=== PATIENT | female | born 1985 | race Asian ===

== ENCOUNTER 2019-02-21 09:53 | Outpatient (CLI) | payer OTHER ==
[~2019-02-21] VITALS: Ht 162.6 cm; Wt 75.6 kg
[~2019-02-21 09:53] MED LIST: PNV11TAB PO
[2019-02-21 10:05] VITALS: BP 122/59; PULSE 83; RESP 19; Ht 162.6 cm; Wt 75.6 kg
--- NOTE | 2019-02-21 11:55 | TRIAGE ---
OB Triage Datetime Report Generated by CPN: 02/21/2019 11:55 Datetime: 02/21/2019 10:09 Assessment Type: Triage Maternal Assessment Level of Consciousness: Keenly Alert, Responsive DTR's/Clonus: DTRs 2+; No Clonus Headache: Denies Blurred Vision: No Respiratory Effort: Unlabored; Regular Rhythm; Equal Expansion Breath Sounds, Left: Clear and Equal Breath Sounds, Right: Clear and Equal Nausea/Vomiting: Denies RUQ Epigastric Pain: Denies Lower Extremities Edema: None Degree: None Upper Extremities Edema: None Degree: None Facial Edema: None Fall Risk Assessment History of Falling: (0) No Secondary Diagnosis: (0) No Ambulatory Aid: (0) Bedrest/Nurse Assist IV Therapy: (0) No Gait: (0) Normal/Bedrest/Immobile Mental Status: (0) Oriented to Own Ability Fall Score: 0 Fall Risk Score Definition: No Risk: No action required Datetime: 02/21/2019 10:08 Time of Arrival: 02/21/2019 09:45 EGA: 36.5 Arrived By: Ambulatory Arrived From: Home Chief Complaint: GDM Movement: Present Contractions: Denies/Absent Rupture of Membranes: Denies Vaginal Bleeding: None Vaginal Discharge: Denies Recent Sexual Intercouse: Denies Abdominal Trauma: Not Applicable Patient Complaints: Other Time Provider Notified: 02/21/2019 11:45 Provider Notified: dr sanford Initial Plan: NST AND BPP Datetime: 02/21/2019 10:07 Labor Evaluation Pattern: Normal: <= 5 Contractions in 10 Minutes Resting Tone [place]: Relaxed Heart Rate FHR Baseline Rate: 135 Monitor Mode: External US Variability: Moderate 6-25 bpm Accelerations: 15X15 Decelerations: None Category: Category I
--- NOTE | 2019-02-21 12:09 | PN ---
Triage Information Date/Time 02/21/19 Reason for visit: antepartum test for GDM Weeks of Gestation 36w5d /Para Diabetes: gestational Diabetes management: diet controlled Hypertention: none Objective Vital Signs Date Temp Pulse Resp B/P (MAP) Pulse Ox O2 O2 Flow FiO2 Time Delivery Rate 02/21/19 97.6 83 19 122/59 10:05 (80) Heart Rate: 140's Contractions: None Results/Medications Results 24 hrs Laboratory Tests Test 02/21/19 11:08 Bedside Glucose 77 Imaging Results BPP 8 KIRA 8.3 Disposition: Discharge Assessment/Plan A IUP 36w5d borderline oligohydramnios GDM P RTH for f/u KIRA also antepartum test pt desire to have EFW advise to drink more water ROSANA PHILLIPS MD Feb 21, 2019 12:09
--- NOTE | 2019-02-24 12:29 | HP ---
DATE OF ADMISSION: 02/21/2019 HISTORY OF PRESENT ILLNESS: Ms. Janet Guardado is a 33-year-old 4, para 1, EDC 03/22/2019, intr auterine at 37 weeks and 1 day gestational age, presented to triage today for a nonstress t est/biophysical profile secondary to GDM A1. She denies any contractions, vaginal bleeding, or disch arge. Her care took place at [facility]. PAST MEDICAL HISTORY: GDM A1. MEDICATIONS: vitamins. PAST SURGICAL HISTORY: x1 previous section. OBSTETRICAL HISTORY: x1 previous , x2 missed AB. GYNECOLOGIC HISTORY: 11, regular 3 to 4 days. Denies any sexually transmitted infections. Sexually active with 1 partner. SOCIAL HISTORY: Denies any smoking, drugs or alcohol. FAMILY HISTORY: None. REVIEW OF SYSTEMS: All within normal except history of present illness. PHYSICAL EXAMINATION: HEENT: Within normal. LUNGS: CTA bilateral. CARDIOVASCULAR: S1, S2, regular rhythm. ABDOMEN: Gravid, nontender. Negative CVA bilateral. EXTREMITIES: Negative edema. No calf tenderness. PELVIC: Vaginal exam deferred. ASSESSMENT: heart tracing category 1. [place]: Irregular contractions. ASSESSMENT: Obtain a biophysical profile with nonstress followed by oral hydration. If everything i s within normal, patient may be discharged. Dictated By: HONG KURTZ/ELIECER Conf#: [id number] DID#: [id number]
== END 2019-02-21 12:01 | disposition home or self-care (01) ==
LOC: OBT 09:53 → L-D 09:56 → OBT 12:01
PROVIDERS: ATTEND Obstetrics & Gynecology
DX: O24.419 Gestational diabetes mellitus in pregnancy, unspecified control (principal); Z3A.36 36 weeks gestation of pregnancy
CPT/HCPCS: 76818; 82962; Z7500; G0463

== ENCOUNTER 2019-02-27 09:25 | Outpatient (CLI) | payer OTHER ==
[~2019-02-27] VITALS: Ht 162.6 cm; Wt 75.3 kg
[2019-02-27 09:48] VITALS: BP 96/59; PULSE 98; RESP 19; Ht 162.6 cm; Wt 75.3 kg
== END 2019-02-27 13:30 | disposition home or self-care (01) ==
LOC: OBT 09:25 → L-D 09:26 → OBT 13:30
PROVIDERS: ATTEND Obstetrics & Gynecology
DX: O24.419 Gestational diabetes mellitus in pregnancy, unspecified control (principal); Z3A.37 37 weeks gestation of pregnancy
CPT/HCPCS: 76816; 76818; 82962; Z7500; G0463

== ENCOUNTER 2019-03-08 00:10 | Inpatient (IN) | payer OTHER ==
[~2019-03-08] VITALS: Ht 162.6 cm; Wt 75.5 kg
[2019-03-08 00:46] VITALS: BP 111/58; PULSE 76; RESP 17; Ht 162.6 cm; Wt 75.5 kg
[2019-03-08] MEDS ORDERED: CEFAZOLIN 2 GM/50 ML (PMX) 50 ML IVPB SCH (01:30)
[2019-03-08] MEDS ORDERED: CARBOPROST 250 MCG INJ IM PRN ×2 (01:30→16:00)
[2019-03-08] MEDS ORDERED: OXYTOCIN 30 UNITS/LR 500 ML IV PRN ×2 (01:30→16:00)
[2019-03-08] MEDS ORDERED: METHYLERGONOVINE 0.2 MG INJ IM PRN ×2 (01:30→16:00)
[2019-03-08] MEDS ORDERED: TERBUTALINE 1 MG/ML INJ SC ONE (01:30)
[2019-03-08] MEDS ORDERED: OXYTOCIN 30 UNITS/LR 500 ML IV SCH ×2 (01:30→15:47)
[2019-03-08] MEDS ORDERED: MISOPROSTOL 200 MCG TAB PR PRN ×2 (01:30→16:00)
[2019-03-08] MEDS: LACTATED RINGER'S 1,000 ML IV SCH ×2 (01:39→03:01)
[2019-03-08] MEDS ORDERED: AZITHROMYCIN 500MG/NS (PMX) 250 ML IVPB ONE (07:00)
[2019-03-08] MEDS ORDERED: ONDANSETRON 4 MG INJ IV ONE (07:30)
[2019-03-08] MEDS ORDERED: CITRIC ACID/NA CITRATE 30 ML CUP PO ONE (07:30)
[2019-03-08] MEDS ORDERED: PHENYLephrine (100 MCG/ML) 10ML SYG ONE (07:42)
[2019-03-08] MEDS ORDERED: OXYTOCIN 10 UNIT INJ ONE (07:43)
[2019-03-08] MEDS ORDERED: morphine SULFATE/PF (10 MG/10 ML) INJ ONE (07:43)
[2019-03-08] MEDS ORDERED: KETOROLAC 30 MG INJ ONE (08:09)
[2019-03-08] MEDS ORDERED: DEXAMETHASONE 4 MG/ML 1 ML INJ ONE (08:09)
[2019-03-08] MEDS ORDERED: METOCLOPRAMIDE 10 MG INJ ONE (08:09)
[2019-03-08] MEDS ORDERED: EPHEDrine 25 MG/5 ML SYG ONE (08:22)
[2019-03-08] MEDS ORDERED: NALOXONE (0.4 MG/ML) INJ IV PRN (08:30)
[2019-03-08] MEDS ORDERED: NALBUPHINE HCL (10 MG/1 ML) INJ IV PRN (08:30)
[2019-03-08] MEDS ORDERED: HYDROmorphONE 0.5 MG/0.5 ML SYG IV PRN ×2 (08:30)
[2019-03-08] MEDS ORDERED: KETOROLAC 30 MG INJ IV PRN (08:30)
[2019-03-08] MEDS ORDERED: ACETAMINOPHEN 500 MG TAB PO PRN (08:30)
[2019-03-08] MEDS ORDERED: DIPHENHYDRAMINE 50 MG INJ IV PRN ×2 (08:30)
[2019-03-08] MEDS ORDERED: HYDROmorphONE 1 MG/5 ML IV SYRINGE IV PRN ×2 (08:30)
[2019-03-08] MEDS ORDERED: FENTAnyl 50 MCG/ML VIAL IV PRN ×2 (08:30)
[2019-03-08] MEDS ORDERED: OXYCODONE/ACETAMINOPHEN (5/325) TAB PO PRN (08:30)
[2019-03-08] MEDS ORDERED: morphine 2 MG INJ IV PRN ×2 (08:30)
[2019-03-08] MEDS ORDERED: ONDANSETRON 4 MG INJ IV PRN ×2 (08:30)
[2019-03-08] MEDS ORDERED: EPHEDrine 25 MG/5 ML SYG IV PRN (08:30)
[2019-03-08] MEDS ORDERED: HYDROCODONE/APAP (5/325) TAB PO PRN (08:30)
[2019-03-08] MEDS ORDERED: MEPERIDINE 25 MG INJ IV PRN (08:30)
[2019-03-08] MEDS ORDERED: LACTATED RINGER'S 1,000 ML IV ONE (10:30)
[2019-03-08 16:00] VITALS: BP 95/53; PULSE 69; RESP 18
[2019-03-08] MEDS ORDERED: MAGNESIUM HYDROXIDE 30ML CUP PO PRN (16:00)
[2019-03-08] MEDS ORDERED: METHYLERGONOVINE 0.2 MG TAB PO PRN (16:00)
[2019-03-08] MEDS ORDERED: LANOLIN HPA 1 PKT TOP PRN (16:00)
[2019-03-08] MEDS: DEXTROSE 5%-LR 1,000 ML IV SCH ×2 (19:20→23:47)
[2019-03-08 20:00] VITALS: BP 100/98; PULSE 63; RESP 19
[2019-03-08] MEDS: SENNA/DOCUSATE NA (8.6MG/50MG) TAB PO SCH (22:36)
[2019-03-09 00:45] VITALS: BP 95/65; PULSE 67; RESP 18
[2019-03-09] MEDS ORDERED: LACTATED RINGER'S 1,000 ML IV SCH (01:30)
[2019-03-09 03:57] VITALS: BP 86/50; PULSE 75; RESP 16
[2019-03-09 08:30] VITALS: BP 82/49; RESP 16
[2019-03-09] MEDS: SENNA/DOCUSATE NA (8.6MG/50MG) TAB PO SCH ×2 (09:56→21:48)
[2019-03-09] MEDS ORDERED: HYDROCODONE/APAP (5/325) TAB NGT PRN (11:00)
[2019-03-09] MEDS ORDERED: DIPHTH/TET/ACEL PERTUSS (ADULT) 0.5 ML VIAL IM* ONE (11:00)
[2019-03-09] MEDS: HYDROCODONE/APAP (5/325) TAB PO SCH ×2 (13:15→21:48)
[2019-03-09] MEDS: IBUPROFEN 800 MG TAB PO SCH ×2 (13:16→21:47)
[2019-03-09] MEDS ORDERED: HYDROCODONE/APAP (5/325) TAB GTB SCH (14:00)
[2019-03-09 16:00] VITALS: BP 98/55; PULSE 73; RESP 16
[2019-03-09] MEDS: ACCU-CHEK XX SCH ×2 (17:35→23:17)
[2019-03-09 20:10] VITALS: BP 102/57; PULSE 80; RESP 18
[2019-03-09] MEDS: HYDROCODONE/APAP (5/325) TAB PO PRN (22:43)
[2019-03-10] MEDS: HYDROCODONE/APAP (5/325) TAB PO PRN ×2 (03:35→20:53)
[2019-03-10 04:42] VITALS: BP 87/55; PULSE 72; RESP 18
[2019-03-10] MEDS: IBUPROFEN 800 MG TAB PO SCH ×3 (05:41→21:59)
[2019-03-10] MEDS: HYDROCODONE/APAP (5/325) TAB PO SCH ×3 (05:42→22:00)
[2019-03-10 08:00] VITALS: BP 78/51; PULSE 71; RESP 14
[2019-03-10] MEDS: ACCU-CHEK XX SCH (08:30)
[2019-03-10] MEDS: SENNA/DOCUSATE NA (8.6MG/50MG) TAB PO SCH ×2 (09:38→20:53)
[2019-03-10 15:55] VITALS: BP 97/56; PULSE 69; RESP 16
[2019-03-11 04:28] VITALS: BP 96/55; PULSE 69; RESP 18
[2019-03-11] MEDS: IBUPROFEN 800 MG TAB PO SCH ×2 (05:51→14:06)
[2019-03-11] MEDS: HYDROCODONE/APAP (5/325) TAB PO SCH ×2 (05:51→14:06)
[2019-03-11 08:30] VITALS: BP 101/59; PULSE 64; RESP 18
[2019-03-11] MEDS ORDERED: DIPHTH/TET/ACEL PERTUSS (ADULT) 0.5 ML VIAL IM* ONE (09:00)
[2019-03-11] MEDS ORDERED: MEASLES,MUMPS,RUBELLA VACCINE INJ SC* ONE (09:00)
[2019-03-11] MEDS: SENNA/DOCUSATE NA (8.6MG/50MG) TAB PO SCH (09:23)
[2019-03-11 16:32] VITALS: BP 117/69; PULSE 73; RESP 18
== END 2019-03-11 17:25 | disposition home or self-care (01) | DRG 788 ==
LOC: L-D 00:10 → OBT 00:10 → L-D 01:20 → PP1 15:34
PROVIDERS: ADMIT Obstetrics & Gynecology; ATTEND Obstetrics & Gynecology
PROC: 10D00Z1 Extraction of Products of Conception, Low, Open Approach (ICD-10-PCS; principal; 2019-03-08 08:30)
DX: O65.5 Obstructed labor due to abnormality of maternal pelvic organs (principal); O34.211 Maternal care for low transverse scar from previous cesarean delivery; O24.429 Gestational diabetes mellitus in childbirth, unspecified control; Z3A.38 38 weeks gestation of pregnancy; Z37.0 Single live birth
CPT/HCPCS: 82947; 82962; 85025; 85610; 85730; 86592; 86850; 86900; 86901; 87340; 99464; G0463; J0456; J0690; J1100; J1885; J2274; J2370; J2405; J2590; J2765; J3105; J7120; J7121